=== PATIENT | female | born 1985 | race Caucasian/White ===

== ENCOUNTER → 2023-05-11 09:35 | Outpatient (CLI) | payer OTHER, MEDICAID, SELFPAY ==
[2023-05-11 19:57] LABS: Alanine Aminotransferase 13 IU/L (<35); Albumin 3.8 g/dL (3.5-5.0); Albumin Globulin Ratio 1.1 (1.0-2.8); Alkaline Phosphatase 96 U/L (38-126); Aspartate Aminotransferase 18 IU/L (14-36); Bilirubin Total 0.2 mg/dL (0.2-1.3); Blood Urea Nitrogen 9 mg/dL (7-17); C-Reactive Protein Quant 2.1 mg/dL (<1.0); Calcium 9.4 mg/dL (8.4-10.2); Carbon Dioxide 26 mmol/L (22-32); Chloride 106 mmol/L (98-107); Cholesterol 177 mg/dL (140-199); Estimated Glomerular Filt Rate > 60 mL/min (>60); Globulin 3.4 g/dL (1.7-4.1); Glucose 95 mg/dL (70-100); HDL Cholesterol 43 mg/dL (40-60); HEMOLYSIS < 15 (0-50); LDL Cholesterol Calculated 105 mg/dL (<100); Potassium 4.2 mmol/L (3.4-5.1); Sodium 140 mmol/L (137-145); Total Protein 7.2 g/dL (6.3-8.2); Triglycerides 147 mg/dL (35-150); Uric Acid 6.6 mg/dL (2.5-6.2)
[2023-05-11 19:59] LABS: Add Manual Diff / Slide Review NO; Basophils Absolute Auto 100 /uL (0-100); Basophils Percent Auto 0.7 % (0-2); Eosinophils Absolute Auto 400 /uL (0-450); Eosinophils Percent Auto 5.9 % (2-4); Hemoglobin 9.8 g/dL (12.0-16.0); Lymphocytes Absolute Auto 1300 /uL (1100-4500); Lymphocytes Percent Auto 17.8 % (25-40); Mean Corpuscular HGB Conc 31.5 % (30-36); Mean Corpuscular Hemoglobin 22.2 PG (26-34); Mean Corpuscular Volume 70.4 fL (80-100); Monocytes Absolute Auto 400 /uL (0-900); Monocytes Percent Auto 5.4 % (3-14); Neutrophils Absolute Auto 5300 /uL (1500-7000); Neutrophils Percent Auto 70.2 % (50-75); Platelet Count 360 X10^3/uL (150-400); Red Blood Cell Count 4.41 X10^6/uL (4.0-5.2); White Blood Cell Count 7.5 X10^3/uL (4.5-11.0)
[2023-05-11 20:09] LABS: Erythrocyte Sedimentation Rate 46 MM/HR (0-20)
[2023-05-11 20:16] LABS: Rheumatoid Factor < 8.6 IU/mL (<12.0)
[2023-05-11 20:27] LABS: TSH w/ Reflex to FT4 2.32 uIU/mL (0.47-4.68)
== END ==
PROVIDERS: PCP Physician Assistant Medical; Visit Provider Physician Assistant Medical
DX: R53.83 Other fatigue (principal); M10.9 Gout, unspecified; M79.7 Fibromyalgia; I10 Essential (primary) hypertension; E78.00 Pure hypercholesterolemia, unspecified; D64.9 Anemia, unspecified
CPT/HCPCS: 80053; 80061; 84443; 84550; 85025; 85651; 86140; 86430

== ENCOUNTER 2023-05-12 14:02 | Emergency (ER) | payer OTHER, MEDICAID, SELFPAY ==
[2023-05-12 14:08] VITALS: BP 183/99; PULSE 80; RESP 17; TEMP 36.4; O2SAT 100; BMI 45.6
[2023-05-12 15:22] LABS: Alanine Aminotransferase 13 IU/L (<35); Albumin 3.8 g/dL (3.5-5.0); Alkaline Phosphatase 80 U/L (38-126); Aspartate Aminotransferase 18 IU/L (14-36); BUN Creatinine Ratio 16.2 (6-22); Bilirubin Total 0.2 mg/dL (0.2-1.3); Blood Urea Nitrogen 11 mg/dL (7-17); Calcium 8.9 mg/dL (8.4-10.2); Carbon Dioxide 23 mmol/L (22-32); Chloride 106 mmol/L (98-107); Estimated Glomerular Filt Rate > 60 mL/min (>60); Glucose 106 mg/dL (70-100); HEMOLYSIS < 15 (0-50); Potassium 3.6 mmol/L (3.4-5.1); Sodium 139 mmol/L (137-145); Total Protein 7.2 g/dL (6.3-8.2)
[2023-05-12 15:23] LABS: Albumin Globulin Ratio 1.1 (1.0-2.8); Basophils Absolute Auto 100 /uL (0-100); Basophils Percent Auto 0.9 % (0-2); Eosinophils Absolute Auto 400 /uL (0-450); Globulin 3.4 g/dL (1.7-4.1); Hematocrit 29.7 % (36-46); Hemoglobin 9.5 g/dL (12.0-16.0); Lipase 90 U/L (23-300); Lymphocytes Absolute Auto 1500 /uL (1100-4500); Lymphocytes Percent Auto 21.3 % (25-40); Mean Corpuscular HGB Conc 32.1 % (30-36); Mean Corpuscular Hemoglobin 22.4 PG (26-34); Mean Corpuscular Volume 69.9 fL (80-100); Monocytes Absolute Auto 500 /uL (0-900); Monocytes Percent Auto 6.6 % (3-14); Neutrophils Absolute Auto 4700 /uL (1500-7000); Neutrophils Percent Auto 65.2 % (50-75); Platelet Count 301 X10^3/uL (150-400); Red Blood Cell Count 4.25 X10^6/uL (4.0-5.2); Red Cell Distribution Width 18.5 % (11.6-14.8); White Blood Cell Count 7.2 X10^3/uL (4.5-11.0)
[2023-05-12 15:25] LABS: Add Manual Diff / Slide Review SLIDE REVIEW
[2023-05-12 15:50] LABS: Anisocytosis 1+
--- NOTE | 2023-05-12 17:18 | DI.CT.S_ITS ---
PROCEDURE: CT ABDOMEN PELVIS W CON INDICATIONS: ? deep abcess on back TECHNIQUE: After the administration of intravenous contrast, axial sections acquired from the lung bases to the pubic symphysis. Coronal and sagittal reformats were performed. For radiation dose reduction, the following was used: automated exposure control, adjustment of mA and/or kV according to patient size. COMPARISON: None. FINDINGS: Image quality: Excellent. Lung bases: Lung bases are clear. Small hiatal hernia. Postsurgical changes near the gastroesophageal junction and stomach. Findings may represent sequela of prior sleeve gastrectomy. Heart: No significant findings. ABDOMEN: Liver: Unremarkable. Gallbladder: Unremarkable. Biliary ducts: Unremarkable. Pancreas: Unremarkable. Spleen: No splenomegaly Adrenal Glands: There is a fat attenuation 2.2 cm left adrenal nodule compatible with an adenoma. Kidneys and Ureters: Kidneys are symmetric in size and enhancement, and there is no obstructive uropathy. No perinephric inflammatory changes. Ureters are normal in course and caliber. Stomach and Bowel: There are postsurgical changes of the gastroesophageal junction and stomach likely from prior sleeve gastrectomy. Small bowel loops, and colon are unremarkable. Postsurgical changes of the right lower quadrant likely from prior appendectomy. Recommend correlation with prior surgical history. Peritoneum: No abnormal intraperitoneal fluid. No free air. Ventral Wall: No hernia. Abdominal Nodes: No retroperitoneal or mesenteric adenopathy by size criteria. Vessels: Aorta and inferior vena cava are normal in size. PELVIS: Pelvic Organs: There is a 5.3 cm cystic structure in the right adnexa/ovary likely representing a cyst. No associated inflammatory changes. Bladder: Unremarkable. Pelvic Nodes: No enlarged lymph nodes. Miscellaneous: No inguinal hernias are seen. Mild subcutaneous soft tissue stranding in the posterior lower back without organized fluid collection. Mild skin thickening. Most pronounced area measures approximately 2.4 cm in size and is subdermal in location. No rim enhancement. This is seen at the level of L3. Bones: Unremarkable. Lower lumbar spondylosis. IMPRESSION: 1. Focal soft tissue inflammation involving the posterior back at the level of the L3 vertebral body without evidence for abscess formation. Mild overlying skin thickening. Recommend correlating for cellulitis. 2. There is a 5.3 cm cystic lesion within the right ovary/adnexa which likely represents a cyst. No associated inflammatory changes. If there clinical findings localizing to the right lower quadrant, further evaluation with pelvic ultrasound can be considered. 3. Otherwise, no acute abnormalities identified in the abdomen or pelvis. Chronic findings as described above. Dictated by: David Maravilla M.D. on 05/12/2023 at 18:24 Approved by: David Maravilla M.D. on 05/12/2023 at 18:31
--- NOTE | 2023-05-12 18:26 | PC.NURSE ---
swelling to lower back, localized and soft to the touch. no redness or heat to the area.
--- NOTE | 2023-05-12 19:01 | ED.BACK ---
HPI - Back Pain/Injury General Chief Complaint: Back Pain/Injury Stated Complaint: sent by [facility]/cyst on lower back Time Seen by Provider: 05/12/23 18:10 Source: patient Mode of arrival: Ambulatory History of Present Illness HPI Narrative: Patient is a 38-year-old female who is here for evaluation of what was initially described as a cyst on her lower back. She stated that she started noticed it a couple days ago. It is tender to the touch. She actually thinks it is somewhat smaller today than what it has been. No fevers. She is never had anything like this in the past. She went to her primary provider on [facility] who sent her here to the emergency department for further evaluation. Related Data Home Medications Medication Instructions Recorded Confirmed cetirizine 10 mg capsule (All Day 10 mg PO DAILY 04/13/23 05/12/23 Allergy (cetirizine)) omeprazole magnesium 20 mg 20 mg PO DAILY 04/13/23 05/12/23 capsule,delayed release (Acid [employer] (omeprazole)) Previous Rx's Medication Instructions Recorded buspirone 5 mg tablet 5 mg PO TID #90 tabs 04/13/23 losartan 25 mg tablet 25 mg PO DAILY #90 tabs 04/27/23 cephalexin 500 mg capsule 500 mg PO QID 7 days #28 caps 05/12/23 Allergies Allergy/AdvReac Type Severity Reaction Status Date / Time Sulfa (Sulfonamide Allergy Hives Verified 05/12/23 14:12 Antibiotics) lisinopril AdvReac Mild Cough Verified 05/12/23 14:12 Review of Systems Constitutional Constitutional: Reports system reviewed and no additional complaints, except as documented Integumentary/Breasts Skin/Breast: Reports system reviewed and no additional complaints, except as documented Patient History Social History Smoking Status: Current every day smoker Smoking Status: Current every day smoker alcohol intake frequency: other Substance Use Type: marijuana Exam Initial Vital Signs Initial Vital Signs: Vital Signs Temperature 97.6 F 05/12/23 14:08 Pulse Rate 80 05/12/23 14:08 Respiratory Rate 17 05/12/23 14:08 Blood Pressure 183/99 H 05/12/23 14:08 Pulse Oximetry 100 05/12/23 14:08 Oxygen Delivery Method Room Air 05/12/23 14:08 [facility] Head: normal to inspection and normocephalic Skin Other: There is a area that is fairly well-defined in midline lower back. It proximally 4 cm in diameter. There is no overlying erythema. Course Orders Ordered: ED Orders 05/12/23 15:00 Complete Blood Count AUTO DIFF Stat Comprehensive Metabolic Panel Stat Lipase Stat 05/12/23 17:18 CT abdomen pelvis w con Stat Discontinued Medications Cephalexin HCl (Cephalexin 250 Mg Capsule) 500 mg PO NOW ONE Stop: 05/12/23 19:02 Last Admin: 05/12/23 19:13 Dose: 500 mg Documented By: HONEY Ondansetron HCl (Ondansetron 4 Mg Odt) 4 mg PO NOW PRN PRN Reason: Nausea And Vomiting Ondansetron HCl (Ondansetron 4 Mg/2 Ml Inj) 4 mg IV NOW PRN PRN Reason: Nausea And Vomiting Vital Signs Vital signs: Vital Signs - 8 hr 05/12/23 19:18 Pulse Rate 79 Respiratory Rate 20 Blood Pressure 185/100 H Pulse Oximetry 100 Oxygen Delivery Method Room Air MDM - Back Pain/Injury Lab Data Attestation: I reviewed the patient's lab results. 05/12/23 15:00 05/12/23 15:00 Labs: Lab Results 05/12/23 Range/Units 15:00 WBC 7.2 (4.5-11.0) X10^3/uL RBC 4.25 (4.0-5.2) X10^6/uL Hgb 9.5 L (12.0-16.0) g/dL Hct 29.7 L (36-46) % MCV 69.9 L (80-100) fL MCH 22.4 L (26-34) PG MCHC 32.1 (30-36) % RDW 18.5 H (11.6-14.8) % Plt Count 301 (150-400) X10^3/uL Neut % (Auto) 65.2 (50-75) % Lymph % (Auto) 21.3 L (25-40) % [place] % (Auto) 6.6 (3-14) % Eos % (Auto) 6.0 H (2-4) % Baso % (Auto) 0.9 (0-2) % Neut # (Auto) 4700 (8761-5393) /uL Lymph # (Auto) 1500 (1657-9118) /uL [place] # (Auto) 500 (0-900) /uL Eos # (Auto) 400 (0-450) /uL Baso # (Auto) 100 (0-100) /uL RBC Morphology See below Anisocytosis 1+ H Sodium 139 (137-145) mmol/L Potassium 3.6 (3.4-5.1) mmol/L Chloride 106 (98-107) mmol/L Carbon Dioxide 23 (22-32) mmol/L BUN 11 (7-17) mg/dL Creatinine 0.68 (0.52-1.04) mg/dL Estimated GFR > 60 (>60) mL/min BUN/Creatinine Ratio 16.2 (6-22) Glucose 106 H (70-100) mg/dL Calcium 8.9 (8.4-10.2) mg/dL Total Bilirubin 0.2 (0.2-1.3) mg/dL AST 18 (14-36) IU/L ALT 13 (<35) IU/L Alkaline Phosphatase 80 (38-126) U/L Total Protein 7.2 (6.3-8.2) g/dL Albumin 3.8 (3.5-5.0) g/dL Globulin 3.4 (1.7-4.1) g/dL Albumin/Globulin Ratio 1.1 (1.0-2.8) Lipase 90 (23-300) U/L Point of Care Testing Test Results Negative Urine Dip Bedside Urine Glucose Negative Bedside Urine Bilirubin - Negative Bedside Urine Ketone - Negative Urine Specific [place] 1.020 Bedside Urine Occult Blood - Negative Bedside Urine pH 6.0 Bedside Urine Protein - Negative Bedside Urine Urobilinogen - Negative Bedside Urine Nitrite - Negative Bedside Urine Leukocytes - Negative Esterase Imaging Data CT scan - abdomen/pelvis: Radiologist's Impression: PROCEDURE: CT ABDOMEN PELVIS W CON INDICATIONS: ? deep abcess on back TECHNIQUE: After the administration of intravenous contrast, axial sections acquired from the lung bases to the pubic symphysis. Coronal and sagittal reformats were performed. For radiation dose reduction, the following was used: automated exposure control, adjustment of mA and/or kV according to patient size. COMPARISON: None. FINDINGS: Image quality: Excellent. Lung bases: Lung bases are clear. Small hiatal hernia. Postsurgical changes near the gastroesophageal junction and stomach. Findings may represent sequela of prior sleeve gastrectomy. Heart: No significant findings. ABDOMEN: Liver: Unremarkable. Gallbladder: Unremarkable. Biliary ducts: Unremarkable. Pancreas: Unremarkable. Spleen: No splenomegaly Adrenal Glands: There is a fat attenuation 2.2 cm left adrenal nodule compatible with an adenoma. Kidneys and Ureters: Kidneys are symmetric in size and enhancement, and there is no obstructive uropathy. No perinephric inflammatory changes. Ureters are normal in course and caliber. Stomach and Bowel: There are postsurgical changes of the gastroesophageal junction and stomach likely from prior sleeve gastrectomy. Small bowel loops, and colon are unremarkable. Postsurgical changes of the right lower quadrant likely from prior appendectomy. Recommend correlation with prior surgical history. Peritoneum: No abnormal intraperitoneal fluid. No free air. Ventral Wall: No hernia. Abdominal Nodes: No retroperitoneal or mesenteric adenopathy by size criteria. Vessels: Aorta and inferior vena cava are normal in size. PELVIS: Pelvic Organs: There is a 5.3 cm cystic structure in the right adnexa/ovary likely representing a cyst. No associated inflammatory changes. Bladder: Unremarkable. Pelvic Nodes: No enlarged lymph nodes. Miscellaneous: No inguinal hernias are seen. Mild subcutaneous soft tissue stranding in the posterior lower back without organized fluid collection. Mild skin thickening. Most pronounced area measures approximately 2.4 cm in size and is subdermal in location. No rim enhancement. This is seen at the level of L3. Bones: Unremarkable. Lower lumbar spondylosis. IMPRESSION: 1. Focal soft tissue inflammation involving the posterior back at the level of the L3 vertebral body without evidence for abscess formation. Mild overlying skin thickening. Recommend correlating for cellulitis. 2. There is a 5.3 cm cystic lesion within the right ovary/adnexa which likely represents a cyst. No associated inflammatory changes. If there clinical findings localizing to the right lower quadrant, further evaluation with pelvic ultrasound can be considered. 3. Otherwise, no acute abnormalities identified in the abdomen or pelvis. Chronic findings as described above. MDM Narrative Medical decision making narrative: Labs are unremarkable. CT scan does not show signs of an abscess or cyst. There is no fluid collection in this area. There are findings on the CT scan that would make this consistent with a cellulitis although there is no overlying skin erythema. No indication for incision and drainage. No indication for surgical consultation. Will place her on antibiotics to see if her symptoms improve. She was instructed to contact her primary doctor for follow-up. She was given return precautions. She expressed understanding and agreement. Discharge Plan Departure Patient Disposition: Home Clinical Impression: Cellulitis Instructions: DI for Cellulitis -- Adult Activity Restrictions/Additional Instructions: I do recommend that you take the antibiotics as directed. Contact your primary doctor for a follow-up. Return to the emergency department for new symptoms. Prescriptions: New cephalexin 500 mg capsule 500 mg PO QID 7 Days Qty: 28 0RF No Action losartan 25 mg tablet 25 mg PO DAILY Qty: 90 0RF buspirone 5 mg tablet 5 mg PO TID Qty: 90 3RF omeprazole magnesium [Acid [employer] C [employer] (omeprazole)] 20 mg capsule,delayed release(DR/EC) 20 mg PO DAILY All Day Allergy (cetirizine) 10 mg capsule 10 mg PO DAILY Referrals: Aziza Streeter PA-C [Primary Care Provider] - Stand Alone Forms: Patient Portal/API, Work Release Note
[2023-05-12] MEDS: cephALEXin 250 MG CAPSULE 500 MG PO (19:13)
[2023-05-12 19:18] VITALS: BP 185/100; PULSE 79; RESP 20; O2SAT 100
== END 2023-05-12 19:18 | disposition home or self-care (01) ==
PROVIDERS: Emergency Medicine; Emergency Provider Emergency Medicine; PCP Physician Assistant Medical
DX: L03.312 Cellulitis of back [any part except buttock and flank] (principal)
CPT/HCPCS: 36415; 74177; 80053; 81003; 81025; 83690; 85025; 99284; Q9967

== ENCOUNTER → 2023-06-14 11:04 | Outpatient (CLI) | payer OTHER, MEDICAID, SELFPAY ==
[2023-06-14 19:23] LABS: Add Manual Diff / Slide Review NO; Basophils Absolute Auto 100 /uL (0-100); Eosinophils Absolute Auto 400 /uL (0-450); Eosinophils Percent Auto 5.5 % (2-4); Hematocrit 30.2 % (36-46); Hemoglobin 9.6 g/dL (12.0-16.0); Lymphocytes Absolute Auto 1200 /uL (1100-4500); Lymphocytes Percent Auto 18.1 % (25-40); Mean Corpuscular HGB Conc 31.8 % (30-36); Mean Corpuscular Hemoglobin 22.2 PG (26-34); Mean Corpuscular Volume 69.9 fL (80-100); Monocytes Absolute Auto 400 /uL (0-900); Monocytes Percent Auto 6.8 % (3-14); Neutrophils Absolute Auto 4400 /uL (1500-7000); Neutrophils Percent Auto 68.6 % (50-75); Platelet Count 358 X10^3/uL (150-400); Red Blood Cell Count 4.32 X10^6/uL (4.0-5.2); Red Cell Distribution Width 18.3 % (11.6-14.8); White Blood Cell Count 6.5 X10^3/uL (4.5-11.0)
[2023-06-14 19:29] LABS: HEMOLYSIS < 15 (0-50); Iron 43 ug/dL (37-170); Uric Acid 6.5 mg/dL (2.5-6.2)
[2023-06-14 19:40] LABS: Percent Iron Saturation 12 % (15-50); Total Iron Binding Capacity 373 ug/dL (265-497)
[2023-06-14 20:30] LABS: Transferrin 314 mg/dL (206-381)
[2023-06-14 20:31] LABS: Hypochromasia 1+; Microcytosis 1+
[2023-06-14 21:29] LABS: Folate 5.1 ng/mL (2.76-20.0); Vitamin B12 430 pg/mL (239-931)
== END ==
PROVIDERS: PCP Physician Assistant Medical; Visit Provider Physician Assistant Medical
DX: D64.9 Anemia, unspecified (principal); E79.0 Hyperuricemia without signs of inflammatory arthritis and tophaceous disease; D75.9 Disease of blood and blood-forming organs, unspecified
CPT/HCPCS: 82607; 82746; 83540; 83550; 84550; 85025